=== PATIENT | male | born 1965 | race Caucasian/White ===

== ENCOUNTER 2017-02-11 08:59 | Emergency (ER) | payer OTHER ==
[2017-02-11 09:05] VITALS: BP 153/100; PULSE 64; RESP 18; TEMP 97.9; O2SAT 95
--- NOTE | 2017-02-11 09:31 | EDPHY ---
H & P Stated Complaint: sharp pain/to l foot while hiking/concerned about snakebite Time Seen by Provider: 02/11/17 09:09 HPI/ROS: CHIEF COMPLAINT: Snake bite HISTORY OF PRESENT ILLNESS: The patient is a 51 year man who was walking with his dog in the tall grass and sandals when he felt a sudden sharp pain to the in sole of his left foot. He is concerned about a possible snake bite. He never saw or heard it. He has 1 humberto/puncture to his left insole. No swelling. No erythema. This happened about 45 minutes ago. He was concerned about snake bite because of a history of lung transplant several years ago for a history of idiopathic pulmonary fibrosis. He is on immunosuppressants. He is not on blood thinners. REVIEW OF SYSTEMS: Constitutional: denies: chills, fever, recent illness, recent injury EENTM: denies: blurred vision, double vision, nose congestion Respiratory: denies: cough, shortness of breath Cardiac: denies: chest pain, irregular heart rate, lightheadedness, palpitations Gastrointestinal/Abdominal: denies: abdominal pain, diarrhea, nausea, vomiting, blood streaked stools Genitourinary: denies: dysuria, frequency, hematuria, pain Musculoskeletal: denies: joint pain, muscle pain Skin: See HPI Neurological: denies: headache, numbness, paresthesia, tingling, dizziness, weakness Hematologic/Lymphatic: denies: blood clots, easy bleeding, easy bruising Immunologic/allergic: denies: HIV/AIDS, transplant EXAM: GENERAL: Well-appearing, well-nourished and in no acute distress. HEAD: Atraumatic, normocephalic. EYES: Pupils equal round and reactive to light, extraocular movements intact, sclera anicteric, conjunctiva are normal. ENT: TMs normal, nares patent, oropharynx clear without exudates. Moist mucous membranes. NECK: Normal range of motion, supple without lymphadenopathy or JVD. LUNGS: Breath sounds clear to auscultation bilaterally and equal. No wheezes rales or rhonchi. HEART: Regular rate and rhythm without murmurs, rubs or gallops. ABDOMEN: Soft, nontender, normoactive bowel sounds. No guarding, no rebound. No masses appreciated. BACK: No CVA tenderness, no spinal tenderness, step-offs or deformities EXTREMITIES: Normal range of motion, no pitting or edema. No clubbing or cyanosis. NEUROLOGICAL: Cranial nerves II through XII grossly intact. Normal speech, normal gait. 5/5 strength, normal movement in all extremities, normal sensation PSYCH: Normal mood, normal affect. SKIN: Small contusion and possible puncture to left insula. No foreign body. No tenderness. No erythema. No swelling. Source: Patient Exam Limitations: No limitations - Personal History Current Tetanus/Diphtheria Vaccine: Yes - Medical/Surgical History Hx Asthma: No Hx Chronic Respiratory Disease: No Hx Diabetes: No Hx Cardiac Disease: No Hx Renal Disease: No Hx Cirrhosis: No Hx Alcoholism: No Hx HIV/AIDS: No Hx Splenectomy or Spleen Trauma: No Other PMH: IPPFE/lung transplant - Family History Significant Family History: No pertinent family hx - Social History Smoking Status: Never smoked Alcohol Use: Sober Drug Use: None Constitutional: Initial Vital Signs Temperature (C) 36.6 C 02/11/17 09:02 Heart Rate 64 02/11/17 09:02 Respiratory Rate 18 02/11/17 09:02 Blood Pressure 153/100 H 02/11/17 09:02 O2 Sat (%) 95 02/11/17 09:02 O2 Delivery Mode Room Air Allergies/Adverse Reactions: NSAIDS (Non-Steroidal Anti-Inflamma Allergy (Verified 02/11/17 09:01) Home Medications: Medication Instructions Recorded AZITHROMYCIN 02/11/17 Bactrim DS 02/11/17 Imuran 50 mg (*) 02/11/17 Prednisone 02/11/17 Prograf 02/11/17 Medical Decision Making ED Course/Re-evaluation: The patient has a bruise and possibly small puncture. We agreed to observe for the next couple of hours. This is not very suspicious for snake bite. 10:30 a.m.. The patient remains asymptomatic. His mild swelling has actually decreased. He is eager to go home. Differential Diagnosis: Partial list of the Differential diagnosis considered include but were not limited to; snake bite, puncture wound, abrasion, contusion and although unlikely based on the history and physical exam, I also considered foreign body , fracture. I discussed these differential diagnoses and the plan with the patient as well as the usual and expected course. The patient understands that the diagnosis is provisional and that in medicine we are not always correct and that further workup is often warranted. Usual and customary warnings were given. All of the patient's questions were answered. The patient was instructed to return to the emergency department should the symptoms at all worsen or return, otherwise to followup with the physician as we discussed. Departure - Departure Disposition: Home, Routine, Self-Care Clinical Impression: Abrasion Condition: Fair Instructions: Abrasion (ED) Referrals: Patient,NotPresent [Unknown] - As per Instructions Corby Medina MD [[facility] [place] Primary Care Provider] - As per Instructions
== END 2017-02-11 10:43 | disposition home or self-care (01) ==
DX: T14.8 Other injury of unspecified body region (principal); X58.XXXA Exposure to other specified factors, initial encounter; Y99.8 Other external cause status; Y93.K1 Activity, walking an animal